=== PATIENT | female | born 1950 | race Caucasian/White ===

== ENCOUNTER 2018-09-08 08:41 | Day surgery (SDC) | payer MEDICARE, OTHER ==
[~2018-09-08 08:41] MED LIST: BRIMONIDINE 0.2% OPHTH DROPS 5 ML ONE; CYCLOPENTOLATE 1% OPHTH DROPS 2 ML ONE; EPINEPHrine 1 MG/ML AMP ONE; KETOROLAC 0.45% OPHTH DROPS ONE; PHENYLEPHRINE 2.5% OPHTH 2 ML DROPS ONE; PROPARACAINE 0.5% OPHTH DROPS 15 ML ONE; TIMOLOL 0.5% OPHTH DROPS ONE; TRIAMCIN/MOXIFLOX OPHTHALMIC 0.6 ML VIAL IO ONE
--- NOTE | 2018-09-08 09:05 | ANESTHESIA ---
Pre-Anesthesia VS, & Labs - Diagnosis R senile combined cataract - Procedure R extraction cataract with IOL Vital Signs: Last Vital Signs Temp 36.4 C L 09/08/18 09:10 Pulse 62 09/08/18 09:10 Resp 18 09/08/18 09:10 BP 142/91 H 09/08/18 09:10 Pulse Ox 96 09/08/18 09:10 Height 5 ft 5 in - NPO >8 hours Last Fluid Intake: black coffee@0600 - Is Patient ?: No Home Medications and Allergies Escitalopram Oxalate [Lexapro] 10 mg PO DAILY 11/01/15 Allergies/Adverse Reactions: Allergies Allergy/AdvReac Type Severity Reaction Status Date / Time amoxicillin trihydrate * Allergy Anaphylaxis Verified 11/01/15 11:09 [From Augmentin] ciprofloxacin [From Cipro] Allergy Unknown Verified 11/01/15 11:09 ciprofloxacin HCl * Allergy Unknown Verified 11/01/15 11:09 [From Cipro] codeine Allergy Itching Verified 09/07/18 13:50 potassium clavulanate * Allergy Anaphylaxis Verified 11/01/15 11:09 [From Augmentin] Anes History & Medical History - Anesthetic History Anesthesia Complications: reports: No previous complications Family history of Anesthesia Complications: Denies Family history of Malignant Hyperthermia: Denies - Medical History Cardiovascular: reports: None Pulmonary: reports: None Gastrointestinal: reports: Diverticulitis Urinary: reports: Kidney stones, Other Musculoskeletal: reports: Osteoarthritis Endocrine/Autoimmune: reports: None Skin: reports: None Smoking Status: Former smoker - Surgical History General: Cholecystectomy, Appendectomy Gynecologic: Hysterectomy Orthopedic: Rotator cuff repair Exam General: Alert, Oriented x3, Cooperative Dental: WNL Mouth Openin Fingerbreadth Neck Mobility: Normal Mallampati classification: I Thyromental Distance: 4-6 cm Respiratory: Lungs clear Cardiovascular: Regular rate Neurological: Normal speech Mental/Cognitive Status: Alert/Oriented X3, Normal for patient Cognitive Status: Within normal limits Plan Anesthesia Type: MAC Consent for Procedure(s) Verified and Reviewed: Yes Code Status: Attempt Resuscitation ASA classification: 2-Mild systemic disease Is this case an emergency?: No
[2018-09-08] MEDS ORDERED: LACTATED RINGERS 500 ML IV ONE (09:10)
[2018-09-08] MEDS ORDERED: PHENYLEPHRINE 2.5% OPHTH 2 ML DROPS RIGHTEYE ONE (09:15)
[2018-09-08] MEDS ORDERED: PROPARACAINE 0.5% OPHTH DROPS 15 ML RIGHTEYE ONE (09:15)
[2018-09-08] MEDS ORDERED: CYCLOPENTOLATE 1% OPHTH DROPS 2 ML RIGHTEYE ONE (09:15)
[2018-09-08] MEDS ORDERED: KETOROLAC 0.45% OPHTH DROPS RIGHTEYE ONE (09:15)
[2018-09-08] MEDS ORDERED: TIMOLOL 0.5% OPHTH DROPS OPTH ONE (09:57)
[2018-09-08] MEDS ORDERED: BRIMONIDINE 0.2% OPHTH DROPS 5 ML OPTH ONE (09:57)
[2018-09-08] MEDS ORDERED: CHONDR SULF/HYALURONATE SYRINGE IO ONE (09:57)
[2018-09-08] MEDS ORDERED: EPINEPHrine 1 MG/ML AMP IVP ONE (09:57)
[2018-09-08] MEDS ORDERED: MIDAZOLAM 2 MG/2 ML VIAL IVP ONE (09:58)
[2018-09-08] MEDS ORDERED: VANCOMYCIN OPHTHALMI 8MG/0.8ML 8 MG/0.8 ML SYRINGE IO ONE (09:58)
[2018-09-08] MEDS ORDERED: TRIAMCIN/MOXIFLOX OPHTHALMIC 0.6 ML VIAL IO ONE (09:58)
[2018-09-08] MEDS ORDERED: BSS/LIDOCAINE/EPINEPHRINE 1 ML SYRINGE IO ONE (09:58)
[2018-09-08] MEDS ORDERED: LACTATED RINGERS 300 ML IV ONE (10:06)
[2018-09-08 10:29] VITALS: BP 125/72
--- NOTE | 2018-09-08 11:58 | OPERATIVE REPORT ---
DATE OF SERVICE: 09/08/2018 Physician: Sandeep Smith MD PREOPERATIVE DIAGNOSIS: Visually significant cataract, right eye. This was her first cataract surge ry. POSTOPERATIVE DIAGNOSIS: Visually significant cataract, right eye. This was her first cataract surg chaz. DESCRIPTION OF PROCEDURE: Phacoemulsification with posterior chamber intraocular lens implant, right eye. SURGEON: Sandeep Smith MD ANESTHESIA: Monitored anesthesia care. COMPLICATIONS: None. OPERATIVE INDICATIONS: This is a 68-year-old woman with progressive vision loss in the right eye due to 2+ nuclear and vacuolar cataract. Best corrected visual acuity was 20/25, with glare to 20/630. Indications for surgery were overall decrease in vision, difficulty seeing words on a computer scree n, difficulty seeing street signs, difficulty driving in low light or at night, difficulty driving at night because of headlights from other vehicles, and difficulty with glare or bright lights in any s ituation. She was consented at length concerning the risks and benefits of cataract surgery, [facility] expressed a desire to proceed with surgery. OPERATIVE PROCEDURE: The patient was taken into OR #3 and placed under monitored anesthesia care. A surgical timeout was conducted confirming the correct patient, correct procedure, and correct surgic al site. She was given topical anesthesia, prepped and draped in the usual sterile fashion. The eye was entered at the 12 and 9 o'clock positions. Intracameral Shugarcaine was injected into the anter ior chamber, followed by Viscoat. A continuous-tear curvilinear capsulorrhexis was performed. The n ucleus was hydrodissected and phacoemulsified. The cortex was evacuated using automated infusion and aspiration. Provisc was injected into the capsular bag, and a 15.5 diopter intraocular lens was ins erted into the bag. Approximately 0.8 mL of a mixture of triamcinolone, moxifloxacin, and vancomycin was injected subconjunctivally in the superior quadrant for infection and inflammation prophylaxis. I and A was used to evacuate the viscoelastic materials. The eye was inflated to physiologic pressu re with balanced salt solution and found to be watertight. The patient was taken from the operating room in good condition and given postoperative instructions. TD: 09/08/2018 10:09
== END 2018-09-08 08:42 | disposition home or self-care (01) ==
LOC: SDS 08:41
PROVIDERS: ATTEND Ophthalmology
PROC: 08RJ3JZ Replacement of Right Lens with Synthetic Substitute, Percutaneous Approach (ICD-10-PCS; principal; 2018-09-08 10:00)
DX: H25.811 Combined forms of age-related cataract, right eye (principal); F41.9 Anxiety disorder, unspecified; Z87.891 Personal history of nicotine dependence
CPT/HCPCS: 66984; A9270; J3490; J7120; V2632

== ENCOUNTER 2018-10-06 08:47 | Day surgery (SDC) | payer MEDICARE, OTHER ==
[~2018-10-06 08:47] MED LIST changes: +BSS/LIDOCAINE/EPINEPHRINE 1 ML SYRINGE ONE; -CYCLOPENTOLATE 1% OPHTH DROPS 2 ML ONE; -EPINEPHrine 1 MG/ML AMP ONE; -KETOROLAC 0.45% OPHTH DROPS ONE; -PHENYLEPHRINE 2.5% OPHTH 2 ML DROPS ONE; -PROPARACAINE 0.5% OPHTH DROPS 15 ML ONE; +VANCOMYCIN OPHTHALMI 8MG/0.8ML 8 MG/0.8 ML SYRINGE IO ONE
[2018-10-06] MEDS ORDERED: KETOROLAC 0.45% OPHTH DROPS LEFTEYE ONE (08:50)
[2018-10-06] MEDS ORDERED: PROPARACAINE 0.5% OPHTH DROPS 15 ML LEFTEYE ONE ×2 (08:50→10:06)
[2018-10-06] MEDS ORDERED: PHENYLEPHRINE 2.5% OPHTH 2 ML DROPS LEFTEYE ONE (08:50)
[2018-10-06] MEDS ORDERED: CYCLOPENTOLATE 1% OPHTH DROPS 2 ML LEFTEYE ONE (08:50)
[2018-10-06] MEDS ORDERED: LACTATED RINGERS 500 ML IV ONE (09:14)
--- NOTE | 2018-10-06 09:20 | ANESTHESIA ---
Pre-Anesthesia VS, & Labs - Diagnosis left senile combined cataract - Procedure left cataract extraction with intraocular lens implant Vital Signs: Temp Pulse Resp BP Pulse Ox 36.6 C 64 18 149/89 H 97 10/06/18 09:01 10/06/18 09:01 10/06/18 09:01 10/06/18 09:01 10/06/18 09:01 Height 5 ft 5 in Weight (kg) 76 kg - NPO >8 hours - Is Patient ?: Not Applicable Home Medications and Allergies Escitalopram Oxalate [Lexapro] 10 mg PO DAILY 11/01/15 Allergies/Adverse Reactions: Allergies Allergy/AdvReac Type Severity Reaction Status Date / Time amoxicillin trihydrate * Allergy Anaphylaxis Verified 11/01/15 11:09 [From Augmentin] ciprofloxacin [From Cipro] Allergy Unknown Verified 11/01/15 11:09 ciprofloxacin HCl * Allergy Unknown Verified 11/01/15 11:09 [From Cipro] codeine Allergy Itching Verified 09/07/18 13:50 potassium clavulanate * Allergy Anaphylaxis Verified 11/01/15 11:09 [From Augmentin] Anes History & Medical History - Anesthetic History Anesthesia Complications: reports: Post-Operative Nausea/Vomiting - Medical History Cardiovascular: reports: None Pulmonary: reports: None Gastrointestinal: reports: Diverticulitis Urinary: reports: Kidney stones, Other Musculoskeletal: reports: Osteoarthritis Endocrine/Autoimmune: reports: None Skin: reports: None Smoking Status: Former smoker Psychosocial: reports: Depression - Surgical History General: Cholecystectomy, Appendectomy Gynecologic: Hysterectomy Orthopedic: Rotator cuff repair Exam General: Alert Dental: WNL Mouth Opening: Greater than 4 Fingerbreadths Mallampati classification: II Thyromental Distance: greater than 6 cm Respiratory: Lungs clear Cardiovascular: Regular rate, Normal S1, Normal S2 Plan Anesthesia Type: MAC Consent for Procedure(s) Verified and Reviewed: Yes Code Status: Attempt Resuscitation ASA classification: 2-Mild systemic disease Is this case an emergency?: No
[2018-10-06] MEDS ORDERED: MIDAZOLAM 2 MG/2 ML VIAL IVP ONE (10:00)
[2018-10-06] MEDS ORDERED: fentaNYL 100 MCG/2 ML VIAL IVP ONE (10:00)
[2018-10-06] MEDS ORDERED: BRIMONIDINE 0.2% OPHTH DROPS 5 ML OPTH ONE (10:04)
[2018-10-06] MEDS ORDERED: EPINEPHrine 1 MG/ML AMP IVP ONE (10:05)
[2018-10-06] MEDS ORDERED: TIMOLOL 0.5% OPHTH DROPS OPTH ONE (10:05)
[2018-10-06] MEDS ORDERED: BSS/LIDOCAINE/EPINEPHRINE 1 ML SYRINGE IO ONE (10:05)
[2018-10-06] MEDS ORDERED: CHONDR SULF/HYALURONATE SYRINGE IO ONE (10:05)
[2018-10-06] MEDS ORDERED: TRIAMCIN/MOXIFLOX OPHTHALMIC 0.6 ML VIAL IO ONE (10:07)
[2018-10-06] MEDS ORDERED: VANCOMYCIN OPHTHALMI 8MG/0.8ML 8 MG/0.8 ML SYRINGE IO ONE (10:07)
[2018-10-06 10:41] VITALS: BP 135/59
--- NOTE | 2018-10-06 11:15 | OPERATIVE REPORT ---
DATE OF SERVICE: 10/06/2018 Physician: Sandeep Smith MD PREOPERATIVE DIAGNOSIS: Visually significant cataract, left eye. Cataract surgery was performed on the right eye on 09/08/2018. POSTOPERATIVE DIAGNOSIS: Visually significant cataract, left eye. Cataract surgery was performed on the right eye on 09/08/2018. PROCEDURE: Phacoemulsification with posterior chamber intraocular lens implant, left eye. SURGEON: Sandeep Smith MD ANESTHESIA: Monitored anesthesia care. COMPLICATIONS: None. OPERATIVE INDICATIONS: This is a 68-year-old woman with progressive vision loss in the left eye due to 2+ nuclear sclerotic, 1+ posterior subcapsular and vacuolar cataract. Best corrected visual acuit y was 20/20 with glare to 20/50 in the left eye. Indications for surgery are overall decrease in vis ion, difficulty seeing words on a computer screen, difficulty reading, difficulty seeing street signs , difficulty driving at night because of headlights from other vehicles, and difficulty with glare or bright lights in any situation. She was consented at length concerning risks and benefits of catara ct surgery, after which she expressed a desire to proceed with surgery. OPERATIVE PROCEDURE: Patient was taken into OR #3 and placed under monitored anesthesia care. A natalio gical timeout was conducted confirming the correct patient, correct procedure, and correct surgical s ite. She was given topical anesthesia, and then prepped and draped in the usual sterile fashion. Th e eye was entered at the 6 and 3 o'clock positions. Intracameral Shugarcaine was injected into the a nterior chamber, followed by Viscoat. A continuous-tear curvilinear capsulorrhexis was performed. T he nucleus was hydrodissected and phacoemulsified. The cortex was evacuated using automated and infu rosmery and aspiration. Provisc was injected. Provisc was injected in the capsular bag, and a 14.0 Mike pter intraocular lens was inserted into the bag. Approximately 0.8 mL of a mixture of triamcinolone, moxifloxacin, and vancomycin was injected subconjunctivally in the superior quadrant for infection a nd inflammation prophylaxis. I and A was used to evacuate the viscoelastic material. The eye was in flated to physiologic pressure using balanced salt solution and found to be watertight. Patient was taken from the operating room in good condition and given postoperative instructions. TD: 10/06/2018 10:31
== END 2018-10-06 08:48 | disposition home or self-care (01) ==
LOC: SDS 08:47
PROVIDERS: ATTEND Ophthalmology
PROC: 08RK3JZ Replacement of Left Lens with Synthetic Substitute, Percutaneous Approach (ICD-10-PCS; principal; 2018-10-06 10:00)
DX: H25.812 Combined forms of age-related cataract, left eye (principal); F41.9 Anxiety disorder, unspecified; Z87.891 Personal history of nicotine dependence
CPT/HCPCS: 66984; A9270; V2632

== ENCOUNTER 2019-07-24 15:53 | Outpatient (CLI) | payer MEDICARE, OTHER | END 2019-07-24 15:54 | disposition home or self-care (01) | LOC: COV 15:53 | PROVIDERS: ATTEND Family Medicine | DX: R05 Cough (principal); R50.9 Fever, unspecified | CPT/HCPCS: 81599; U0002 ==

== ENCOUNTER 2022-08-03 08:00 | Outpatient (CLI) | payer MEDICARE, OTHER | END 2022-08-03 23:59 | disposition home or self-care (01) | LOC: LAB.N 08:00 | PROVIDERS: ATTEND Registered Nurse | DX: N12 Tubulo-interstitial nephritis, not specified as acute or chronic (principal) | CPT/HCPCS: 87077; 87086 ==